=== PATIENT | female | born 1955 | race Caucasian/White ===

== ENCOUNTER 2019-08-25 10:19 | Emergency (ER) | payer MEDICARE ==
[~2019-08-25] VITALS: Ht 172.7 cm; Wt 110.0 kg
[2019-08-25 11:03] LABS: BASOPHILS # (AUTO) 0.1 X10'3 (0-0.2); BASOPHILS % (AUTO) 0.6 % (0-1); EOSINOPHILS # (AUTO) 0.1 X10'3 (0-0.9); EOSINOPHILS % (AUTO) 0.5 % (0-6); HEMATOCRIT 40.9 % (35.0-45.0); HEMOGLOBIN 14.1 g/dl (12.0-16.0); LYMPHOCYTES # (AUTO) 1.3 X10'3 (1.1-4.8); LYMPHOCYTES % (AUTO) 10.2 % (21-51); MEAN CORPUSCULAR HEMOGLOBIN 30.3 PG (27.0-31.0); MEAN CORPUSCULAR HGB CONC 34.3 g/dL (33.0-36.5); MEAN CORPUSCULAR VOLUME 88.2 FL (78-98); MEAN PLATELET VOLUME 7.9 FL (7.4-10.4); MONOCYTES # (AUTO) 0.7 X10'3 (0-0.9); MONOCYTES % (AUTO) 5.8 % (2-12); NEUTROPHILS # (AUTO) 10.5 X10'3 (1.8-7.7); NEUTROPHILS % (AUTO) 82.9 % (42-75); PLATELET COUNT 372 X10'3 (140-440); RED BLOOD COUNT 4.64 X10'6 (4.20-5.60); RED CELL DISTRIBUTION WIDTH 13.3 % (11.5-14.5); WHITE BLOOD COUNT 12.6 X10'3 (4.5-11.0)
[2019-08-25 11:22] LABS: ALANINE AMINOTRANSFERASE 30 U/L (12-78); ALBUMIN 3.3 G/DL (3.4-5.0); ALBUMIN/GLOBULIN RATIO 0.8 (1.1-1.5); ALKALINE PHOSPHATASE 60 IU/L (46-116); ANION GAP 10 (8-16); ASPARTATE AMINO TRANSFERASE 16 U/L (10-37); BILIRUBIN,TOTAL 0.9 MG/DL (0.1-1.0); BLOOD UREA NITROGEN 9 MG/DL (7-18); BUN/CREATININE RATIO 12.3 (6.6-38.0); CALCIUM 8.9 MG/DL (8.5-10.1); CHLORIDE 104 MMOL/L (99-107); CREATININE 0.73 MG/DL (0.40-0.90); GLUCOSE 139 MG/DL (70-104); POTASSIUM 3.5 MMOL/L (3.5-5.1); SODIUM 139 MMOL/L (135-145); TOTAL CARBON DIOXIDE 24.9 MMOL/L (24-32); TOTAL PROTEIN 7.2 G/DL (6.4-8.2); eGFR 80 ML/MIN
--- NOTE | 2019-08-25 12:12 | NUR ---
discussed pt's cp and stock complaint with serena Light; new orders for ASA, nitro and morphine received
[2019-08-25] MEDS ORDERED: nitroGLYCERIN 0.4mg SUBLingual tab SL PRN (12:15)
[2019-08-25] MEDS ORDERED: aspirin 81mg tab.chew PO ONE (12:15)
[2019-08-25] MEDS ORDERED: morphine 4 MG/ML inj SYRINge IV ONE (12:15)
[2019-08-25] MEDS ORDERED: ondansetron/PF 4mg/2ml inj IV ONE (12:20)
[2019-08-25] MEDS ORDERED: famotidine/PF 10 mg/ml inj IV ONE (13:20)
[2019-08-25] MEDS ORDERED: normal saline 1000ML IV soln IVB ONE (13:20)
[2019-08-25] MEDS ORDERED: pantoprazole 40 MG vial IV ONE (13:20)
[2019-08-25] MEDS ORDERED: iohexol 350MG/ML 100ml bottle IV ONE (13:39)
--- NOTE | 2019-08-25 14:10 | NUR ---
PT AMB WITH STEADY GAIT TO RESTROOM
[2019-08-25 14:18] VITALS: BP 136/85
--- NOTE | 2019-08-25 14:19 | NUR ---
RELIEVING RN FOR BREAK, 1ST LITER NS INFUSING W/O
[2019-08-25] MEDS ORDERED: mag hydrox/Alum hydrox/simeth 30ml oral suspension PO ONE (15:00)
[2019-08-25] MEDS ORDERED: sucralfate 1gm/10ml UD suspension PO ONE (15:00)
[2019-08-25] MEDS ORDERED: sucralfate 1gm/10ml UD suspension PO SCH (15:00)
[2019-08-25] MEDS ORDERED: LIDOcaine Viscous 15ml cup MM PRN (15:00)
== END 2019-08-25 15:25 | disposition home or self-care (01) ==
LOC: ER 10:20
DX: R07.89 Other chest pain (principal); R06.02 Shortness of breath; E06.3 Autoimmune thyroiditis; E03.9 Hypothyroidism, unspecified
CPT/HCPCS: 36415; 71045; 71275; 80053; 84439; 84443; 84484; 85025; 93005; 96374; 96375; 99284; C9113; J2270; J2405; J3490; J7030; Q9967

== ENCOUNTER 2020-08-25 22:08 | Emergency (ER) | payer MEDICARE ==
[~2020-08-25] VITALS: Ht 175.3 cm; Wt 110.0 kg
[2020-08-25 22:54] LABS: BASOPHILS % (AUTO) 0.3 % (0-1); EOSINOPHILS % (AUTO) 0.3 % (0-6); HEMATOCRIT 41.7 % (35.0-45.0); HEMOGLOBIN 14.1 g/dl (12.0-16.0); LYMPHOCYTES % (AUTO) 7.9 % (21-51); MEAN CORPUSCULAR HEMOGLOBIN 30.7 PG (27.0-31.0); MEAN CORPUSCULAR HGB CONC 33.7 g/dL (33.0-36.5); MEAN CORPUSCULAR VOLUME 91.1 FL (78-98); MEAN PLATELET VOLUME 8.3 FL (7.4-10.4); MONOCYTES # (AUTO) 0.8 X10'3 (0-0.9); MONOCYTES % (AUTO) 6.1 % (2-12); NEUTROPHILS # (AUTO) 10.7 X10'3 (1.8-7.7); NEUTROPHILS % (AUTO) 85.4 % (42-75); PLATELET COUNT 376 X10'3 (140-440); RED BLOOD COUNT 4.58 X10'6 (4.20-5.60); RED CELL DISTRIBUTION WIDTH 13.7 % (11.5-14.5); WHITE BLOOD COUNT 12.5 X10'3 (4.5-11.0)
[2020-08-25] MEDS ORDERED: ondansetron/PF 4mg/2ml inj IV ONE (22:55)
[2020-08-25] MEDS ORDERED: iohexol 300mg/ml 100ml inj. ONE (23:02)
[2020-08-25 23:04] LABS: ALANINE AMINOTRANSFERASE 51 U/L (12-78); ALBUMIN 3.1 G/DL (3.4-5.0); ALBUMIN/GLOBULIN RATIO 0.6 (1.1-1.5); ALKALINE PHOSPHATASE 74 IU/L (46-116); ANION GAP 9 (8-16); ASPARTATE AMINO TRANSFERASE 54 U/L (10-37); BILIRUBIN,TOTAL 0.5 MG/DL (0.1-1.0); BLOOD UREA NITROGEN 10 MG/DL (7-18); BUN/CREATININE RATIO 12.7 (6.6-38.0); CALCIUM 9.4 MG/DL (8.5-10.1); CHLORIDE 100 MMOL/L (99-107); CREATININE 0.79 MG/DL (0.40-0.90); GLUCOSE 127 MG/DL (70-104); MAGNESIUM 1.9 MG/DL (1.5-2.4); POTASSIUM 4.2 MMOL/L (3.5-5.1); SODIUM 135 MMOL/L (135-145); TOTAL CARBON DIOXIDE 26.1 MMOL/L (24-32); TOTAL PROTEIN 7.9 G/DL (6.4-8.2); eGFR 73 ML/MIN
[2020-08-25 23:13] LABS: ANISOCYTOSIS 3+; PLATELET ESTIMATE NORMAL
--- NOTE | 2020-08-25 23:26 | NUR ---
Pt to CT
[2020-08-25] MEDS ORDERED: vancomycin/NS 1 GM ADD-VANTAGE 250 ML IV ONE (23:35)
[2020-08-26] MEDS ORDERED: HYDROcodone/acetaminophen 10/325mg tab PO ONE
[2020-08-26 00:01] LABS: CLARITY,URINE CLEAR (Clear); COLOR,URINE YELLOW (Yellow); GLUCOSE, URINE NEGATIVE (Neg); KETONES,URINE NEGATIVE (Neg); LEUKOCYTE ESTERASE ,URINE NEGATIVE (Neg); NITRITES, URINE NEGATIVE (Neg); OCCULT BLOOD,URINE TRACE-INTACT (Neg); PH,URINE 6.5 (4.8-8.0); PROTEIN,URINE NEGATIVE (Neg); UROBILINOGEN,URINE 0.2 E.U/dL (0.2-1.0)
[2020-08-26 00:08] LABS: UA COLLECTION TYPE CLN CATCH MIDSTREAM
[2020-08-26 00:09] LABS: BACTERIA,URINE NONE SEEN /HPF (Neg); RBC,URINE 0-2 /HPF (0-2); SQUAMOUS EPITHELIAL CELL,UR MODERATE /LPF (FEW); WBC,URINE NONE SEEN /HPF (0-4)
[2020-08-26] MEDS ORDERED: sulfamethoxazole/trimethoprim DS (800/160mg) tablet PO ONE (00:35)
[2020-08-26] MEDS ORDERED: SULF1TAB49 PO (00:39)
[2020-08-26 01:45] VITALS: BP 159/88
[2020-08-26] MEDS ORDERED: METO-384 PO ×2 (13:59)
[2020-08-26] MEDS ORDERED: APIX5TAB3 PO (13:59)
[2020-08-26] MEDS ORDERED: METH-604 PO (14:01)
== END 2020-08-26 01:47 | disposition home or self-care (01) ==
LOC: ER 22:09
DX: L76.82 Other postprocedural complications of skin and subcutaneous tissue (principal); L02.11 Cutaneous abscess of neck; E05.90 Thyrotoxicosis, unspecified without thyrotoxic crisis or storm; I48.91 Unspecified atrial fibrillation; Z90.49 Acquired absence of other specified parts of digestive tract; Z90.710 Acquired absence of both cervix and uterus; Z98.890 Other specified postprocedural states; Z72.89 Other problems related to lifestyle; Z79.01 Long term (current) use of anticoagulants; Z79.899 Other long term (current) drug therapy
CPT/HCPCS: 96365; 96375; 99285; J2405; J3370; Q9967; 36415; 70491; 71045; 80053; 81001; 81003; 83605; 83735; 84145; 85008; 85025; 87040; 87070; 87077; 87186; 93005

== ENCOUNTER 2020-08-26 12:42 | Inpatient (IN) | payer MEDICARE ==
[2020-08-26] VITALS (14 sets, daily range): BP systolic 116–159; BP diastolic 59–92
[~2020-08-26] VITALS: Ht 172.7 cm; Wt 111.0 kg
[~2020-08-26 12:42] MED LIST: SULF1TAB49 PO; famotidine 20mg tablet PO ONE; vancomycin/NS 1 GM ADD-VANTAGE 250 ML IV ONE
[2020-08-26] MEDS ORDERED: ceFAZolin 2gm in dextrose, iso 50 ML IV ONE (13:25)
[2020-08-26] MEDS ORDERED: VANCOMYCIN 1,500MG inj. 1,500 MG in normal saline 500ml IV soln 300 ML IV ONE (13:35)
[2020-08-26] MEDS ORDERED: METO-384 PO ×2 (13:59)
[2020-08-26] MEDS ORDERED: APIX5TAB3 PO (13:59)
[2020-08-26] MEDS ORDERED: METH-604 PO (14:01)
[2020-08-26] MEDS: ringers solution, lacted 1,000 ML IV SCH (14:03)
[2020-08-26] MEDS ORDERED: HYDROcodone/acetaminophen 10/325mg tab PO ONE (19:20)
[2020-08-26 19:42] LABS: PRE OP PARTIAL THROMB. TIME 28 SECONDS (22-32)
[2020-08-26] MEDS ORDERED: midazolam 2 mg/2 ml injection ONE ×2 (20:24→20:45)
[2020-08-26] MEDS ORDERED: rocuronium 10mg/ml inj IV ONE (20:36)
[2020-08-26] MEDS ORDERED: sevoflurane 250ml liquid IH ONE (20:36)
[2020-08-26] MEDS ORDERED: glycopyrrolate 0.2mg/ml inj ONE (20:36)
[2020-08-26] MEDS ORDERED: neostigmine methylsulfate 1 MG/ML 10ml vial ONE (20:36)
[2020-08-26] MEDS ORDERED: propofol 10mg/ml 20ml vial IV ONE (20:36)
[2020-08-26] MEDS ORDERED: fentaNYL/PF 50MCG/1 ML 2ML syringe ONE (20:45)
[2020-08-26] MEDS ORDERED: vancomycin 1,000mg inj ONE (21:17)
[2020-08-26] MEDS ORDERED: ondansetron/PF 4mg/2ml inj IV PRN (22:50)
[2020-08-26] MEDS ORDERED: HYDROcodone/acetaminophen 10/325mg tab PO PRN (22:50)
--- NOTE | 2020-08-26 23:00 | NUR ---
Patient in room OR. I have received report from Migel JEFFERS and had the opportunity to ask questions and assume patient care.
[2020-08-26] MEDS: normal saline 1000ml 1,000 ML IV SCH (23:18)
[2020-08-27] VITALS (10 sets, daily range): BP systolic 112–154; BP diastolic 49–87
[2020-08-27] MEDS: ringers solution, lacted 1,000 ML IV SCH (02:25)
[2020-08-27] MEDS ORDERED: ringers solution, lacted 1,000 ML IV SCH (05:00)
[2020-08-27] MEDS ORDERED: famotidine 20mg tablet PO ONE (05:30)
[2020-08-27] MEDS: HYDROcodone/acetaminophen 10/325mg tab PO PRN ×3 (05:36→18:59)
--- NOTE | 2020-08-27 07:07 | NUR ---
Problems reprioritized. Patient report given, questions answered & plan of care reviewed with Bg JEFFERS.
[2020-08-27 08:20] LABS: BASOPHILS % (AUTO) 0.4 % (0-1); EOSINOPHILS % (AUTO) 0.4 % (0-6); HEMOGLOBIN 12.5 g/dl (12.0-16.0); LYMPHOCYTES # (AUTO) 0.8 X10'3 (1.1-4.8); LYMPHOCYTES % (AUTO) 10.2 % (21-51); MEAN CORPUSCULAR HEMOGLOBIN 30.9 PG (27.0-31.0); MEAN CORPUSCULAR HGB CONC 33.9 g/dL (33.0-36.5); MEAN PLATELET VOLUME 8.2 FL (7.4-10.4); MONOCYTES # (AUTO) 0.5 X10'3 (0-0.9); MONOCYTES % (AUTO) 6.5 % (2-12); NEUTROPHILS # (AUTO) 6.2 X10'3 (1.8-7.7); NEUTROPHILS % (AUTO) 82.5 % (42-75); PLATELET COUNT 346 X10'3 (140-440); RED BLOOD COUNT 4.06 X10'6 (4.20-5.60); RED CELL DISTRIBUTION WIDTH 13.5 % (11.5-14.5); WHITE BLOOD COUNT 7.5 X10'3 (4.5-11.0)
[2020-08-27 08:36] LABS: ALANINE AMINOTRANSFERASE 39 U/L (12-78); ALBUMIN 2.5 G/DL (3.4-5.0); ALBUMIN/GLOBULIN RATIO 0.6 (1.1-1.5); ALKALINE PHOSPHATASE 65 IU/L (46-116); ANION GAP 10 (8-16); ASPARTATE AMINO TRANSFERASE 21 U/L (10-37); BILIRUBIN,TOTAL 0.4 MG/DL (0.1-1.0); BLOOD UREA NITROGEN 9 MG/DL (7-18); BUN/CREATININE RATIO 13.2 (6.6-38.0); CALCIUM 8.5 MG/DL (8.5-10.1); CHLORIDE 100 MMOL/L (99-107); CREATININE 0.68 MG/DL (0.40-0.90); GLUCOSE 96 MG/DL (70-104); POTASSIUM 4.1 MMOL/L (3.5-5.1); SODIUM 136 MMOL/L (135-145); TOTAL CARBON DIOXIDE 26.1 MMOL/L (24-32); TOTAL PROTEIN 6.9 G/DL (6.4-8.2); eGFR 87 ML/MIN
[2020-08-27] MEDS: vancomycin/NS 1 GM ADD-VANTAGE 250 ML IV SCH ×2 (10:54→22:11)
[2020-08-27] MEDS: normal saline 1000ml 1,000 ML IV SCH (17:04)
--- NOTE | 2020-08-27 18:38 | NUR ---
Patient in room [facility]TH[facility] 4010. I have received report from ZEYAD Pederson and had the opportunity to ask questions and assume patient care.
[2020-08-27] MEDS ORDERED: magnesium hydroxide 30ml (MOM) UD suspension PO PRN (19:10)
[2020-08-27] MEDS: apixaban 5mg tablet PO SCH (20:02)
[2020-08-27] MEDS: lactobacillus rhamnosus 10,000 MMU CELLS/CAPSULE PO SCH (20:02)
[2020-08-27] MEDS ORDERED: metoprolol succinate 25mg (24-HOUR) SR. Tablet PO SCH (21:00)
[2020-08-28] MEDS: HYDROcodone/acetaminophen 10/325mg tab PO PRN ×4 (01:18→23:04)
[2020-08-28 02:00] VITALS: BP 145/75
--- NOTE | 2020-08-28 06:28 | NUR ---
Problems reprioritized. Patient report given, questions answered & plan of care reviewed with ZEYAD Styles.
[2020-08-28 07:02] VITALS: BP 144/71
[2020-08-28] MEDS: lactobacillus rhamnosus 10,000 MMU CELLS/CAPSULE PO SCH ×2 (08:20→19:26)
[2020-08-28] MEDS: methimazole 5mg tablet PO SCH (08:20)
[2020-08-28] MEDS: apixaban 5mg tablet PO SCH ×2 (08:21→19:26)
[2020-08-28] MEDS ORDERED: METO25TA6 PO (08:46)
[2020-08-28] MEDS: metoprolol tartrate 25mg tablet PO SCH ×2 (09:20→17:34)
[2020-08-28 10:00] VITALS: BP 158/83
[2020-08-28] MEDS: vancomycin/NS 1 GM ADD-VANTAGE 250 ML IV SCH ×2 (12:26→22:38)
[2020-08-28] MEDS: normal saline 1000ml 1,000 ML IV SCH (14:52)
[2020-08-28 18:00] VITALS: BP 167/95
--- NOTE | 2020-08-28 18:22 | NUR ---
Problems reprioritized. Patient report given, questions answered & plan of care reviewed with Karuna JEFFERS.
[2020-08-28] MEDS ORDERED: METO50TA17 PO (18:42)
--- NOTE | 2020-08-28 18:48 | NUR ---
Medications verified and sent to pharmacy.
[2020-08-28] MEDS ORDERED: ESTRADIOL TOP (19:25)
[2020-08-28] MEDS ORDERED: metoprolol tartrate 25mg tablet PO ONE (20:00)
[2020-08-28] MEDS: famotidine 20mg tablet PO SCH (20:11)
[2020-08-28] MEDS ORDERED: VANCOMYCIN LEVEL IV ONE (21:30)
[2020-08-28 22:00] VITALS: BP_SYST 110; BP_SYST 155; BP_DIAS 66; BP_DIAS 91
[2020-08-29 02:00] VITALS: BP 155/76
[2020-08-29 07:00] VITALS: BP 129/70
[2020-08-29] MEDS: apixaban 5mg tablet PO SCH ×2 (07:50→20:08)
[2020-08-29] MEDS: metoprolol tartrate 50mg tablet PO SCH ×2 (07:50→20:07)
[2020-08-29] MEDS: lactobacillus rhamnosus 10,000 MMU CELLS/CAPSULE PO SCH ×2 (07:50→20:06)
[2020-08-29] MEDS: methimazole 5mg tablet PO SCH (08:12)
[2020-08-29] MEDS ORDERED: calcium carbonate 500mg chew tablet PO SCH (08:30)
[2020-08-29] MEDS ORDERED: calcium carbonate 500mg chew tablet PO PRN ×2 (08:30→10:30)
[2020-08-29 09:55] VITALS: BP 156/91
[2020-08-29] MEDS ORDERED: VANCOmycin 1250MG/NS 250ml Bag 250 ML IV SCH (10:00)
[2020-08-29] MEDS: CefTRIAXone 2gm/D5W 50ml BAG 50 ML IV SCH (11:31)
--- NOTE | 2020-08-29 11:53 | NUR ---
Called in prescription to [facility] for discharge.
[2020-08-29 14:00] VITALS: BP 168/81
[2020-08-29 18:00] VITALS: BP 159/77
--- NOTE | 2020-08-29 18:20 | NUR ---
Problems reprioritized. Patient report given, questions answered & plan of care reviewed with Desi JEFFERS.
[2020-08-29] MEDS: famotidine 20mg tablet PO SCH (20:07)
[2020-08-29 22:00] VITALS: BP 139/70
[2020-08-30 02:00] VITALS: BP 146/85
--- NOTE | 2020-08-30 03:04 | NUR ---
Problems reprioritized. Patient report given, questions answered & plan of care reviewed with Stephani JEFFERS.
[2020-08-30] MEDS: CefTRIAXone 2gm/D5W 50ml BAG 50 ML IV SCH (08:00)
[2020-08-30 08:01] VITALS: BP_SYST 128
[2020-08-30] MEDS: apixaban 5mg tablet PO SCH (08:01)
[2020-08-30] MEDS: metoprolol tartrate 50mg tablet PO SCH (08:01)
[2020-08-30] MEDS: lactobacillus rhamnosus 10,000 MMU CELLS/CAPSULE PO SCH (08:01)
[2020-08-30] MEDS: methimazole 5mg tablet PO SCH (08:03)
--- NOTE | 2020-08-30 08:11 | NUR ---
not all meds scanned into [employer], checked meds prior to admin, continue to monitor pt
[2020-08-30] MEDS: HYDROcodone/acetaminophen 10/325mg tab PO PRN (10:29)
[2020-08-30] MEDS ORDERED: HYDR-3972 PO (12:06)
[2020-08-30] MEDS ORDERED: LINE600T14 PO (12:06)
[2020-08-30] MEDS ORDERED: VANCOMYCIN LEVEL IV ONE (21:30)
[2020-08-31] MEDS ORDERED: linezolid 600mg tablet PO SCH (08:00)
--- NOTE | 2020-09-01 10:15 | NUR ---
CASE MANAGEMENT DISCHARGE FOLLOW UP: Spoke with pt via telephone. Pt reports that she is "coming along" and still "a little wobbly" but improving; she would like to get drain out of neck but having trouble getting appointment with Dr. Aldridge's office due to COVID positive status. Pt states that her drain has had no output in the last 24 hours. She does admit to some diarrhea, wants to know what probiotic she was taking in the hospital. Advised that pt was taking 10,000mmu Culturelle Q12H, advised that pt can also get probiotics in foods such as yogurt and sauerkraut as long as container states "live cultures", pt verbalizes understanding. She states that she does not know if diarrhea has mucus or foul odor as she hasn't really been looking, advised that if she notices these symptoms to notify PCP; provided education to pt on opportunistic C. difficile infections, she verbalizes understanding. Pt states that her daughter is an RN at [employer] [facility], advised that if she has any questions she can also runt those by her daughter. Pt verbalizes understanding of s/sx requiring further evaluation/emergent assistance. Pt verbalizes understanding of new and current medications, states no side effects. Pt verbalizes compliance with MD discharge instructions. Pt verbalizes understanding of the importance in making follow-up appointments, states will also follow up with Dr Pugh in 2 weeks. Pt states no further questions/concerns at this time.
== END 2020-08-30 15:45 | disposition home or self-care (01) | DRG 862 ==
LOC: PRE-OP 12:42 → ORTHO 4S 23:52 → UNDOADMIN 08-27 00:14
PROVIDERS: ADMIT Surgery; ATTEND Surgery
PROC: 0HD4XZZ Extraction of Neck Skin, External Approach (ICD-10-PCS; principal; 2020-08-26 20:36)
DX: T81.40XA Infection following a procedure, unspecified, initial encounter (principal); U07.1 COVID-19; L02.11 Cutaneous abscess of neck; I48.91 Unspecified atrial fibrillation; I73.9 Peripheral vascular disease, unspecified; I10 Essential (primary) hypertension; J32.0 Chronic maxillary sinusitis; B95.4 Other streptococcus as the cause of diseases classified elsewhere; Y83.8 Other surgical procedures as the cause of abnormal reaction of the patient, or of later complication, without mention of misadventure at the time of the procedure; Z96.641 Presence of right artificial hip joint; E05.90 Thyrotoxicosis, unspecified without thyrotoxic crisis or storm; Z85.828 Personal history of other malignant neoplasm of skin; Z90.710 Acquired absence of both cervix and uterus; Z90.49 Acquired absence of other specified parts of digestive tract; Y92.89 Other specified places as the place of occurrence of the external cause
CPT/HCPCS: 36415; 70491; 71045; 80053; 80202; 81001; 81003; 82948; 83605; 83735; 84145; 85008; 85025; 85610; 85730; 87040; 87070; 87077; 87081; 87186; 87635; 93005; 96365; 96375; 99285; A4618; A6449; C9803; G0378; J0696; J2250; J2405; J2704; J2710; J3010; J3370; J3490; J7030; J7040; J7120; Q9967

== ENCOUNTER 2024-02-07 09:33 | Emergency (ER) | payer MEDICARE, OTHER ==
[~2024-02-07] VITALS: Ht 172.7 cm; Wt 112.3 kg
[~2024-02-07 09:33] MED LIST changes: +APIX5TAB3 PO; +ESTRADIOL TOP; +HYDR-3972 PO; +LINE600T14 PO; +METH-604 PO; +METO50TA17 PO; -SULF1TAB49 PO; -famotidine 20mg tablet PO ONE; -vancomycin/NS 1 GM ADD-VANTAGE 250 ML IV ONE
[2024-02-07 09:35] VITALS: TEMP 98
[2024-02-07 10:04] LABS: BASOPHILS # (AUTO) 0.1 X10'3 (0-0.2); EOSINOPHILS # (AUTO) 0.1 X10'3 (0-0.9); EOSINOPHILS % (AUTO) 0.9 % (0-6); HEMATOCRIT 44.8 % (35.0-45.0); LYMPHOCYTES # (AUTO) 1.5 X10'3 (1.1-4.8); LYMPHOCYTES % (AUTO) 16.1 % (21-51); MEAN CORPUSCULAR HEMOGLOBIN 30.8 PG (27.0-31.0); MEAN CORPUSCULAR HGB CONC 33.6 g/dL (33.0-36.5); MEAN CORPUSCULAR VOLUME 91.9 FL (78-98); MEAN PLATELET VOLUME 8.7 FL (7.4-10.4); MONOCYTES # (AUTO) 0.6 X10'3 (0-0.9); MONOCYTES % (AUTO) 6.3 % (2-12); NEUTROPHILS # (AUTO) 7.2 X10'3 (1.8-7.7); NEUTROPHILS % (AUTO) 75.7 % (42-75); PLATELET COUNT 406 X10'3 (140-440); RED BLOOD COUNT 4.87 X10'6 (4.20-5.60); RED CELL DISTRIBUTION WIDTH 13.7 % (11.5-14.5); WHITE BLOOD COUNT 9.5 X10'3 (4.5-11.0)
[2024-02-07 10:24] LABS: ALANINE AMINOTRANSFERASE 38 U/L (12-78); ALBUMIN 3.5 G/DL (3.4-5.0); ALBUMIN/GLOBULIN RATIO 0.8 (1.1-1.5); ALKALINE PHOSPHATASE 46 IU/L (46-116); ANION GAP 11 (8-16); ASPARTATE AMINO TRANSFERASE 14 U/L (10-37); BILIRUBIN,TOTAL 0.9 MG/DL (0.1-1.0); BLOOD UREA NITROGEN 13 MG/DL (7-18); BUN/CREATININE RATIO 15.5 (10.0-20.0); CALCIUM 9.7 MG/DL (8.5-10.1); CHLORIDE 101 MMOL/L (99-107); CREATININE 0.84 MG/DL (0.40-0.90); GLUCOSE 105 MG/DL (70-104); PRO BRAIN NATRIURETIC PEPTIDE 140 PG/ML (0-125); SODIUM 137 MMOL/L (135-145); TOTAL CARBON DIOXIDE 25.5 MMOL/L (24-32); TOTAL PROTEIN 7.8 G/DL (6.4-8.2); eCRCL 64 ML/MIN; eGFR 67 ML/MIN
[2024-02-07 14:07] LABS: BILIRUBIN,URINE NEGATIVE (Neg); COLOR,URINE YELLOW (Yellow); GLUCOSE, URINE NEGATIVE (Neg); KETONES,URINE NEGATIVE (Neg); LEUKOCYTE ESTERASE ,URINE NEGATIVE (Neg); NITRITES, URINE NEGATIVE (Neg); OCCULT BLOOD,URINE NEGATIVE (Neg); PH,URINE 6.5 (4.8-8.0); PROTEIN,URINE NEGATIVE (Neg); UROBILINOGEN,URINE 0.2 E.U/dL (0.2-1.0)
[2024-02-07 14:20] LABS: CLARITY,URINE CLEAR (Clear); UA COLLECTION TYPE CLN CATCH MIDSTREAM
[2024-02-07] MEDS ORDERED: metoprolol tartrate 1mg/ml inj IV ONE (15:10)
[2024-02-07 19:46] VITALS: BP 119/78; PULSE 89; RESP 14; O2SAT 95
== END 2024-02-07 19:50 | disposition home or self-care (01) ==
LOC: ER 09:34
DX: H53.8 Other visual disturbances (principal); R51.9 Headache, unspecified; R11.0 Nausea; I48.91 Unspecified atrial fibrillation; E05.90 Thyrotoxicosis, unspecified without thyrotoxic crisis or storm; Z85.9 Personal history of malignant neoplasm, unspecified; Z90.49 Acquired absence of other specified parts of digestive tract; Z90.710 Acquired absence of both cervix and uterus; Z98.890 Other specified postprocedural states; Z72.89 Other problems related to lifestyle; Z79.899 Other long term (current) drug therapy
CPT/HCPCS: 36415; 70551; 80053; 81003; 83880; 84484; 85025; 93005; 99285; J7030

== ENCOUNTER 2024-10-04 08:43 | Emergency (ER) | payer MEDICARE, OTHER ==
[~2024-10-04] VITALS: Ht 174 cm; Wt 110.9 kg
[~2024-10-04 08:43] MED LIST changes: +METH-1026 PO; -METH-604 PO
[2024-10-04 08:46] VITALS: TEMP 97.8
[2024-10-04] MEDS: dexamethasone sod phosphate 10mg/ml inj IV STA (09:24)
[2024-10-04] MEDS: albuterol 2.5 MG/3 ML nebule NEB ONE (09:36)
[2024-10-04 09:37] VITALS: PULSE 80; RESP 20; O2SAT 96
[2024-10-04 09:42] VITALS: PULSE 79; RESP 14; O2SAT 100
[2024-10-04 10:44] VITALS: BP 161/85; PULSE 80; RESP 17; O2SAT 95
[2024-10-04] MEDS: famotidine 20mg tablet PO ONE (11:27)
== END 2024-10-04 11:41 | disposition home or self-care (01) ==
LOC: ER 08:43
DX: L25.8 Unspecified contact dermatitis due to other agents (principal); T50.8X5A Adverse effect of diagnostic agents, initial encounter; I48.91 Unspecified atrial fibrillation; Z91.030 Bee allergy status; Z90.710 Acquired absence of both cervix and uterus; Z90.49 Acquired absence of other specified parts of digestive tract; Z79.899 Other long term (current) drug therapy; X58.XXXA Exposure to other specified factors, initial encounter; Y92.89 Other specified places as the place of occurrence of the external cause
CPT/HCPCS: 94640; 96374; 99283; J1100; 94760